=== PATIENT | male | born 1995 | race Caucasian/White ===

== ENCOUNTER 2017-10-31 11:54 | Inpatient (IN) | payer OTHER ==
[~2017-10-31] VITALS: Ht 170.2 cm; Wt 89.0 kg
[2017-10-31 12:05] VITALS: Ht 170.2 cm; Wt 89.0 kg
[2017-10-31 12:34] LABS: CALCIUM 9.2 mg/dL (8.5-10.1); CREATININE SERUM 1.8 mg/dL (0.7-1.3); POTASSIUM SERUM 4.8 mmol/L (3.5-5.1)
[2017-10-31 12:39] LABS: AMPHETAMINE QUAL UR NONE DETECTED (NEG <=1000)
[2017-10-31 12:46] LABS: BASOPHIL % 0.3 % (0-2)
[2017-10-31 12:47] LABS: ALBUMIN 3.5 g/dL (3.4-5.0); BILIRUBIN TOTAL 0.4 mg/dL (0.20-1.00); TOTAL PROTEIN, SERUM 7.2 g/dL (6.4-8.2)
[2017-10-31 12:48] LABS: PLATELET COUNT 410 x10^3mcL (130-400); RED CELL DISTRIBUTION WIDTH 15.7 % (11.5-14.5)
[2017-10-31 14:51] VITALS: BP 156/95
[2017-10-31 15:08] LABS: microscopic required? YES; urine erythrocyte TRACE (NEGATIVE)
[2017-10-31 15:19] LABS: MAGNESIUM 2.5 mg/dL (1.8-2.4); PHOSPHOROUS 3.7 mg/dL (2.5-4.9)
[2017-10-31 15:23] LABS: CHOLESTEROL/HDL RATIO 16.3
[2017-10-31 15:33] LABS: FREE T4 0.81 ng/dL (0.76-1.46)
[2017-10-31 15:34] LABS: FREE THYROXINE INDEX 1.6 ug/dL (1.4-4.5); T4(THYROXINE) 4.1 ug/dL (4.7-13.3)
[2017-10-31 15:57] LABS: T3 TOTAL 0.8 ng/mL
[2017-10-31 21:15] VITALS: BP 125/73
[2017-11-01 04:43] VITALS: BP 145/53
[2017-11-01 06:34] LABS: CALCIUM 8.2 mg/dL (8.5-10.1); CARBON DIOXIDE 33.9 mmol/L (21-32); CREATININE SERUM 1.6 mg/dL (0.7-1.3); POTASSIUM SERUM 4.6 mmol/L (3.5-5.1)
[2017-11-01 07:08] LABS: PLATELET COUNT 325 x10^3mcL (130-400)
[2017-11-01 07:17] LABS: BASOPHIL % 2.8 % (0-2); RED CELL DISTRIBUTION WIDTH 15.1 % (11.5-14.5)
[2017-11-01 08:34] VITALS: BP 135/83
[2017-11-01 12:23] VITALS: BP 145/87
[2017-11-01 17:47] VITALS: BP 126/85
== END 2017-11-01 18:29 | disposition home or self-care (01) | DRG 53 ==
LOC: ED 11:54 → DU 14:08
PROVIDERS: Emergency Medicine; ADMIT Family Medicine
DX: G40.401 Other generalized epilepsy and epileptic syndromes, not intractable, with status epilepticus (principal); N17.0 Acute kidney failure with tubular necrosis; F31.9 Bipolar disorder, unspecified; E78.5 Hyperlipidemia, unspecified; R74.0 Nonspecific elevation of levels of transaminase and lactic acid dehydrogenase [LDH]; R31.9 Hematuria, unspecified; E83.41 Hypermagnesemia; E02 Subclinical iodine-deficiency hypothyroidism
CPT/HCPCS: 83880; 84439; G0480; J1200; J1953; J7030; Q0092

== ENCOUNTER 2017-12-06 07:11 | Emergency (ER) | payer OTHER ==
[~2017-12-06] VITALS: Ht 170.2 cm; Wt 89.3 kg
[2017-12-06 07:29] VITALS: BP 165/107; Ht 170.2 cm; Wt 89.3 kg
== END 2017-12-06 07:57 | disposition home or self-care (01) ==
LOC: ED 07:11
DX: S13.4XXA Sprain of ligaments of cervical spine, initial encounter (principal); S80.02XA Contusion of left knee, initial encounter; S90.01XA Contusion of right ankle, initial encounter; V43.92XA Unspecified car occupant injured in collision with other type car in traffic accident, initial encounter; Y93.89 Activity, other specified; Y92.89 Other specified places as the place of occurrence of the external cause; Y99.8 Other external cause status

== ENCOUNTER 2018-04-06 01:28 | Inpatient (IN) | payer OTHER ==
[~2018-04-06] VITALS: Ht 172.7 cm; Wt 96.4 kg
[2018-04-06] VITALS (17 sets, daily range): BP systolic 89–125; BP diastolic 45–86
[2018-04-06 02:20] LABS: BASOPHIL % 1.2 % (0-2); CALCIUM 8.2 mg/dL (8.5-10.1); CARBON DIOXIDE 29.3 mmol/L (21-32); CHLORIDE SERUM 105 mmol/L (98-107); CREATININE SERUM 1.9 mg/dL (0.7-1.3); GFR1 47 mL/min; GLUCOSE SERUM 158 mg/dL (74-106); PLATELET COUNT 271 x10^3mcL (130-400); POTASSIUM SERUM 4.6 mmol/L (3.5-5.1); RED CELL DISTRIBUTION WIDTH 14.5 % (11.5-14.5); SODIUM SERUM 143 mmol/L (136-145)
[2018-04-06 02:25] LABS: ALKALINE PHOSPHATASE 66 U/L (46-116); ALT/SGPT 35 U/L (16-63); AST/SGOT 48 U/L (15-37); BILIRUBIN TOTAL 0.16 mg/dL (0.20-1.00); LIPASE 230 IU/L (73-393)
[2018-04-06 02:26] LABS: ALBUMIN 2.9 g/dL (3.4-5.0); TOTAL PROTEIN, SERUM 5.9 g/dL (6.4-8.2)
[2018-04-06 04:39] LABS: UA SPECIFIC GRAVITY 1.015 (1.005-1.035); microscopic required? YES; urine erythrocyte 1+ (NEGATIVE)
[2018-04-06 04:46] LABS: AMPHETAMINE QUAL UR POSITIVE (NEG <=1000)
[2018-04-06 05:38] LABS: CHOLESTEROL/HDL RATIO 5.6; MAGNESIUM 2.5 mg/dL (1.8-2.4)
[2018-04-06 05:45] LABS: T3 TOTAL 1.16 ng/mL
[2018-04-06 05:47] LABS: FREE T4 0.59 ng/dL (0.76-1.46); FREE THYROXINE INDEX 1.1 ug/dL (1.4-4.5); T4(THYROXINE) 3.4 ug/dL (4.7-13.3)
[2018-04-07] VITALS (18 sets, daily range): BP systolic 100–146; BP diastolic 42–90
[2018-04-07 05:47] LABS: BASOPHIL % 0.1 % (0-2); PLATELET COUNT 141 x10^3mcL (130-400)
[2018-04-07 05:50] LABS: RED CELL DISTRIBUTION WIDTH 15.6 % (11.5-14.5)
[2018-04-07 06:08] LABS: CALCIUM 7.3 mg/dL (8.5-10.1); CREATININE SERUM 1.6 mg/dL (0.7-1.3); PHOSPHOROUS 2.7 mg/dL (2.5-4.9); POTASSIUM SERUM 4.1 mmol/L (3.5-5.1)
[2018-04-07 06:09] LABS: ALBUMIN 2.3 g/dL (3.4-5.0)
[2018-04-08] VITALS (17 sets, daily range): BP systolic 101–125; BP diastolic 47–77
[2018-04-08 04:48] LABS: BASOPHIL % 0.4 % (0-2); PLATELET COUNT 131 x10^3mcL (130-400)
[2018-04-08 04:50] LABS: RED CELL DISTRIBUTION WIDTH 15.1 % (11.5-14.5)
[2018-04-08 04:55] LABS: CALCIUM 7.5 mg/dL (8.5-10.1); CARBON DIOXIDE 28.8 mmol/L (21-32); CHLORIDE SERUM 105 mmol/L (98-107); CREATININE SERUM 1.4 mg/dL (0.7-1.3); GFR1 > 60 mL/min; GLUCOSE SERUM 99 mg/dL (74-106); MAGNESIUM 2.1 mg/dL (1.8-2.4); PHOSPHOROUS 2.2 mg/dL (2.5-4.9); POTASSIUM SERUM 4.2 mmol/L (3.5-5.1); SODIUM SERUM 139 mmol/L (136-145)
[2018-04-09] VITALS (19 sets, daily range): BP systolic 104–180; BP diastolic 49–95
[2018-04-09 04:54] LABS: BASOPHIL % 0.2 % (0-2); PLATELET COUNT 147 x10^3mcL (130-400)
[2018-04-09 05:06] LABS: RED CELL DISTRIBUTION WIDTH 14.9 % (11.5-14.5)
[2018-04-09 05:24] LABS: CALCIUM 7.6 mg/dL (8.5-10.1); CARBON DIOXIDE 27.4 mmol/L (21-32); CHLORIDE SERUM 108 mmol/L (98-107); CREATININE SERUM 1.2 mg/dL (0.7-1.3); GFR1 > 60 mL/min; GLUCOSE SERUM 97 mg/dL (74-106); MAGNESIUM 2.2 mg/dL (1.8-2.4); PHOSPHOROUS 2.1 mg/dL (2.5-4.9); SODIUM SERUM 141 mmol/L (136-145)
[2018-04-09 08:01] LABS: IRON 9 ug/dL (65-170); TOTAL IRON BINDING CAPACITY 132 ug/dL (250-450)
[2018-04-09 08:15] LABS: RED BLOOD CELLS 3.39 M/mm3 (4.52-5.90)
[2018-04-10] VITALS (17 sets, daily range): BP systolic 117–213; BP diastolic 19–122
[2018-04-10 05:47] LABS: PLATELET COUNT 214 x10^3mcL (130-400)
[2018-04-10 05:48] LABS: CALCIUM 8.4 mg/dL (8.5-10.1); CARBON DIOXIDE 32.4 mmol/L (21-32); CHLORIDE SERUM 102 mmol/L (98-107); GFR1 > 60 mL/min; GLUCOSE SERUM 124 mg/dL (74-106); MAGNESIUM 2.4 mg/dL (1.8-2.4); PHOSPHOROUS 4.3 mg/dL (2.5-4.9); SODIUM SERUM 139 mmol/L (136-145)
[2018-04-10 05:53] LABS: ALBUMIN 2.1 g/dL (3.4-5.0)
[2018-04-11] VITALS (18 sets, daily range): BP systolic 85–179; BP diastolic 46–119
[2018-04-11 05:13] LABS: BASOPHIL % 0.2 % (0-2); PLATELET COUNT 250 x10^3mcL (130-400)
[2018-04-11 05:14] LABS: RED CELL DISTRIBUTION WIDTH 15.4 % (11.5-14.5)
[2018-04-11 05:36] LABS: CALCIUM 8.6 mg/dL (8.5-10.1); CARBON DIOXIDE 33.4 mmol/L (21-32); CHLORIDE SERUM 104 mmol/L (98-107); GFR1 > 60 mL/min; GLUCOSE SERUM 112 mg/dL (74-106); MAGNESIUM 2.4 mg/dL (1.8-2.4); PHOSPHOROUS 2.7 mg/dL (2.5-4.9); POTASSIUM SERUM 3.6 mmol/L (3.5-5.1); SODIUM SERUM 143 mmol/L (136-145)
[2018-04-12] VITALS (18 sets, daily range): BP systolic 83–195; BP diastolic 45–117
[2018-04-12 05:22] LABS: BASOPHIL % 1.6 % (0-2); PLATELET COUNT 278 x10^3mcL (130-400)
[2018-04-12 05:24] LABS: RED CELL DISTRIBUTION WIDTH 15.4 % (11.5-14.5)
[2018-04-12 05:33] LABS: CALCIUM 8.4 mg/dL (8.5-10.1); CARBON DIOXIDE 29.4 mmol/L (21-32); CHLORIDE SERUM 107 mmol/L (98-107); GFR1 > 60 mL/min; GLUCOSE SERUM 103 mg/dL (74-106); POTASSIUM SERUM 3.6 mmol/L (3.5-5.1); SODIUM SERUM 145 mmol/L (136-145)
[2018-04-13] VITALS (17 sets, daily range): BP systolic 88–119; BP diastolic 41–85
[2018-04-13 05:21] LABS: PLATELET COUNT 278 x10^3mcL (130-400)
[2018-04-13 05:30] LABS: CALCIUM 7.8 mg/dL (8.5-10.1); CARBON DIOXIDE 27.6 mmol/L (21-32); CHLORIDE SERUM 108 mmol/L (98-107); CREATININE SERUM 1.2 mg/dL (0.7-1.3); GFR1 > 60 mL/min; GLUCOSE SERUM 127 mg/dL (74-106); MAGNESIUM 2.3 mg/dL (1.8-2.4); PHOSPHOROUS 3.7 mg/dL (2.5-4.9); POTASSIUM SERUM 3.7 mmol/L (3.5-5.1); SODIUM SERUM 141 mmol/L (136-145)
[2018-04-13 05:40] LABS: RED CELL DISTRIBUTION WIDTH 14.9 % (11.5-14.5)
[2018-04-14] VITALS (15 sets, daily range): BP systolic 83–142; BP diastolic 45–103
[2018-04-14 05:12] LABS: BASOPHIL % 1.1 % (0-2); PLATELET COUNT 315 x10^3mcL (130-400)
[2018-04-14 05:25] LABS: CALCIUM 7.9 mg/dL (8.5-10.1); CARBON DIOXIDE 27.1 mmol/L (21-32); CHLORIDE SERUM 107 mmol/L (98-107); CREATININE SERUM 1.2 mg/dL (0.7-1.3); GFR1 > 60 mL/min; GLUCOSE SERUM 88 mg/dL (74-106); MAGNESIUM 2.4 mg/dL (1.8-2.4); PHOSPHOROUS 3.9 mg/dL (2.5-4.9); POTASSIUM SERUM 3.6 mmol/L (3.5-5.1); SODIUM SERUM 142 mmol/L (136-145)
[2018-04-15 03:19] VITALS: BP 92/62
[2018-04-15 05:25] LABS: BASOPHIL % 1.2 % (0-2); RED CELL DISTRIBUTION WIDTH 14.2 % (11.5-14.5)
[2018-04-15 05:27] LABS: PLATELET COUNT 417 x10^3mcL (130-400)
[2018-04-15 05:44] LABS: CALCIUM 8.6 mg/dL (8.5-10.1); CARBON DIOXIDE 26.5 mmol/L (21-32); CHLORIDE SERUM 109 mmol/L (98-107); CREATININE SERUM 1.2 mg/dL (0.7-1.3); GFR1 > 60 mL/min; GLUCOSE SERUM 89 mg/dL (74-106); SODIUM SERUM 146 mmol/L (136-145)
[2018-04-15 07:26] VITALS: Ht 172.7 cm; Wt 96.4 kg
[2018-04-15 07:46] VITALS: BP 132/73
[2018-04-15 12:00] VITALS: BP 135/75
[2018-04-15 15:37] VITALS: BP 126/64
[2018-04-15 16:12] VITALS: BP 130/67
[2018-04-15 21:37] VITALS: BP 102/50
[2018-04-16 05:51] VITALS: BP 114/63
[2018-04-16 05:54] LABS: CALCIUM 8.7 mg/dL (8.5-10.1); CARBON DIOXIDE 25.3 mmol/L (21-32); CHLORIDE SERUM 108 mmol/L (98-107); CREATININE SERUM 1.2 mg/dL (0.7-1.3); GFR1 > 60 mL/min; GLUCOSE SERUM 95 mg/dL (74-106); POTASSIUM SERUM 3.6 mmol/L (3.5-5.1); SODIUM SERUM 145 mmol/L (136-145)
[2018-04-16 06:04] LABS: BASOPHIL % 0.3 % (0-2); RED CELL DISTRIBUTION WIDTH 14.4 % (11.5-14.5)
[2018-04-16 06:53] LABS: PLATELET COUNT 512 x10^3mcL (130-400)
[2018-04-16 08:42] VITALS: BP 106/55
== END 2018-04-16 10:50 | disposition left against medical advice (07) | DRG 720 ==
LOC: ED 01:28 → IC 04:42 → DU 04-15 16:11
PROVIDERS: Emergency Medicine; Family Medicine; Student in an Organized Health Care Education/Training Program
PROC: 02HV33Z Insertion of Infusion Device into Superior Vena Cava, Percutaneous Approach (ICD-10-PCS; principal; 2018-04-06)
PROC: B548ZZA Ultrasonography of Superior Vena Cava, Guidance (ICD-10-PCS; 2018-04-06)
PROC: 5A1955Z Respiratory Ventilation, Greater than 96 Consecutive Hours (ICD-10-PCS; 2018-04-10)
DX: A41.9 Sepsis, unspecified organism (principal); J96.01 Acute respiratory failure with hypoxia; N17.0 Acute kidney failure with tubular necrosis; I21.A1 Myocardial infarction type 2; R65.21 Severe sepsis with septic shock; G92 Toxic encephalopathy; J69.0 Pneumonitis due to inhalation of food and vomit; M62.82 Rhabdomyolysis; E83.41 Hypermagnesemia; E43 Unspecified severe protein-calorie malnutrition; K72.90 Hepatic failure, unspecified without coma; E87.2 Acidosis; E02 Subclinical iodine-deficiency hypothyroidism; N18.9 Chronic kidney disease, unspecified; D64.9 Anemia, unspecified; R31.9 Hematuria, unspecified; E83.39 Other disorders of phosphorus metabolism; E86.0 Dehydration; F31.9 Bipolar disorder, unspecified; F19.10 Other psychoactive substance abuse, uncomplicated; T40.1X1A Poisoning by heroin, accidental (unintentional), initial encounter; Y92.89 Other specified places as the place of occurrence of the external cause; F41.1 Generalized anxiety disorder; F41.0 Panic disorder [episodic paroxysmal anxiety]; Z68.35 Body mass index [BMI] 35.0-35.9, adult
CPT/HCPCS: 36556; 36600; 83880; 84439; A4628; C9113; G0480; J0330; J0360; J1642; J1644; J1940; J2060; J2250; J2270; J2405; J2543; J2704; J2916; J3010; J3490; J7030; J7040; J7620; J7626; Q0092; Q9967

== ENCOUNTER 2018-05-03 19:01 | Emergency (ER) | payer OTHER ==
[~2018-05-03] VITALS: Ht 170.2 cm; Wt 83.9 kg
[2018-05-03 19:12] VITALS: Ht 170.2 cm; Wt 83.9 kg
[2018-05-03 20:53] VITALS: BP 133/94
== END 2018-05-03 20:53 | disposition home or self-care (01) ==
LOC: ED 19:01
DX: R51 Headache (principal)

== ENCOUNTER 2018-05-17 11:29 | Emergency (ER) | payer OTHER ==
[~2018-05-17] VITALS: Ht 170.2 cm; Wt 83.0 kg
[2018-05-17 11:34] VITALS: BP 136/99; Ht 170.2 cm; Wt 83.0 kg
== END 2018-05-17 12:44 | disposition home or self-care (01) ==
LOC: ED 11:29
DX: M25.562 Pain in left knee (principal)

== ENCOUNTER 2018-06-24 05:16 | Emergency (ER) | payer MEDICAID ==
[~2018-06-24] VITALS: Ht 170.2 cm; Wt 83.0 kg
[2018-06-24 05:20] VITALS: Ht 170.2 cm; Wt 83.0 kg
[2018-06-24 06:54] VITALS: BP 140/91
== END 2018-06-24 06:54 | disposition home or self-care (01) ==
LOC: ED 05:16
DX: M25.562 Pain in left knee (principal); H92.01 Otalgia, right ear

== ENCOUNTER 2018-06-27 19:53 | Emergency (ER) | payer MEDICAID ==
[~2018-06-27] VITALS: Ht 170.2 cm; Wt 83.9 kg
[2018-06-27 19:57] VITALS: Ht 170.2 cm; Wt 83.9 kg
[2018-06-27 20:56] VITALS: BP 127/80
== END 2018-06-27 20:56 | disposition home or self-care (01) ==
LOC: ED 19:53
DX: F11.20 Opioid dependence, uncomplicated (principal); F13.10 Sedative, hypnotic or anxiolytic abuse, uncomplicated

== ENCOUNTER 2018-11-18 11:01 | Emergency (ER) | payer OTHER ==
[~2018-11-18] VITALS: Ht 170.2 cm; Wt 85.3 kg
[2018-11-18 11:04] VITALS: BP 164/99; Ht 170.2 cm; Wt 85.3 kg
== END 2018-11-18 12:59 | disposition home or self-care (01) ==
LOC: ED 11:01
DX: L02.413 Cutaneous abscess of right upper limb (principal); F15.10 Other stimulant abuse, uncomplicated; F11.10 Opioid abuse, uncomplicated
CPT/HCPCS: J2001

== ENCOUNTER 2019-03-10 02:59 | Emergency (ER) | payer OTHER ==
[~2019-03-10] VITALS: Ht 170.2 cm; Wt 75.0 kg
[2019-03-10 03:04] VITALS: BP 161/143; Ht 170.2 cm; Wt 75.0 kg
== END 2019-03-10 03:09 | disposition left against medical advice (07) ==
LOC: ED 02:59
DX: Z53.21 Procedure and treatment not carried out due to patient leaving prior to being seen by health care provider (principal)

== ENCOUNTER 2019-06-16 20:18 | Emergency (ER) | payer OTHER ==
[~2019-06-16] VITALS: Ht 170.2 cm; Wt 75.7 kg
[2019-06-16 20:22] VITALS: BP 120/83; Ht 170.2 cm; Wt 75.7 kg
== END 2019-06-16 20:38 | disposition left against medical advice (07) ==
LOC: ED 20:18
DX: M25.512 Pain in left shoulder (principal); F19.10 Other psychoactive substance abuse, uncomplicated